=== PATIENT | female | born 1985 | race American Indian/Alaskan Native ===

== ENCOUNTER 2016-11-06 07:52 | Inpatient (IN) | payer MEDICAID, OTHER ==
[2016-11-06 07:58] VITALS: BMI 51.0
[2016-11-06] MEDS ORDERED: Sodium Chloride 0.9% 1,000 ML IV SCH (08:30)
[2016-11-06 08:57] LABS: BASO # 0.04 K/mm3 (0.0-2.0); BASO % 0.4 % (0.0-3.0); EOS % 0.4 % (1.5-5.0); GRAN # 7.73 (1.4-6.5); GRAN % 75.5 % (50.0-68.0); HEMOGLOBIN 12.3 gm/dL (12.0-16.0); LYMPH % 19.2 % (22.0-35.0); MEAN CELL VOLUME 86.6 fL (80.0-105.0); MEAN CORPUSCULAR HEMOGLOBIN 28.5 pg (25.0-35.0); MEAN CORPUSCULAR HGB CONC 32.9 g/dl (31.0-37.0); MEAN PLATELET VOLUME 10.6 fl (7.0-11.0); MONO # 0.5 (0.1-0.6); MONO % 4.5 % (1.0-6.0); PLATELET COUNT 315 10^3/uL (120.0-450.0); RBC 4.32 10^6/uL (3.5-6.1); RED CELL DISTRIBUTION WIDTH 12.2 % (11.5-14.5); WHITE BLOOD COUNT 10.2 10^3/ul (4.5-11.0)
[2016-11-06 08:58] LABS: URINE BILIRUBIN NEGATIVE (NEGATIVE); URINE BLOOD NEGATIVE (NEGATIVE); URINE GLUCOSE (UA) NEGATIVE (NEGATIVE); URINE LEUKOCYTE ESTERASE NEGATIVE Leu/uL (NEGATIVE); URINE NITRATE NEGATIVE (NEGATIVE); URINE PROTEIN 30 mg/dL (<30 mg/dL)
[2016-11-06 09:02] LABS: ALB/GLOB RATIO 1.1 (1.1-1.8); ALBUMIN 4.4 g/dL (3.0-4.8); ALT/SGPT 35 U/L (7-56); AMYLASE 91 U/L (35-125); AST/SGOT 25 U/L (15-39); BLOOD UREA NITROGEN 10 mg/dL (7-21); CALCIUM 9.3 mg/dL (8.4-10.5); GFR AFRICAN-AMERICAN > 60; GFR NON-AFRICAN AMERICAN > 60; HCG,QUALITATIVE URINE NEGATIVE (NEGATIVE); LIPASE 35 U/L (23-300); URINE APPEARANCE CLOUDY (CLEAR); URINE COLOR YELLOW (YELLOW)
[2016-11-06 09:04] LABS: URINE BACTERIA LARGE (NEG); URINE EPITHELIAL CELLS MANY /hpf (0-5); URINE RBC 0 - 2 /hpf (0-2); URINE WBC 0 - 2 /hpf (0-6)
[2016-11-06] MEDS ORDERED: Morphine 2 mg/ml ISec IVP STA ×2 (09:11→11:40)
--- NOTE | 2016-11-06 09:26 | CT ---
PROCEDURE: CT Abdomen and Pelvis without intravenous contrast HISTORY: right flank pain COMPARISON: 01/18/2015 TECHNIQUE: Without contrast.. Contrast Dose: 0 Radiation dose: Total exam DLP = 1233.31 mGy-cm. This CT exam was performed using one or more of the following dose reduction techniques: Automated exposure control, adjustment of the mA and/or kV according to patient size, and/or use of iterative reconstruction technique. FINDINGS: LOWER THORAX: Minimal left lower lobe subsegmental atelectasis. LIVER: Unremarkable. No gross lesion or ductal dilatation. GALLBLADDER AND BILE DUCTS: Unremarkable. PANCREAS: Unremarkable. No gross lesion or ductal dilatation. SPLEEN: Unremarkable. ADRENALS: Unremarkable. No mass. KIDNEYS AND URETERS: 4 mm nonobstructing mid left renal calculus. No right renal calculus. No renal mass. No hydronephrosis. No hydroureter or ureteral calculus. VASCULATURE: Unremarkable. No aortic aneurysm. BOWEL: Unremarkable. No obstruction. No gross mural thickening. APPENDIX: Unremarkable. Normal appendix. PERITONEUM: Unremarkable. No free fluid. No free air. LYMPH NODES: Unremarkable. No enlarged lymph nodes. BLADDER: Nondistended. REPRODUCTIVE: Unremarkable uterus and ovaries BONES: No acute fracture. OTHER FINDINGS: None. IMPRESSION: Nonobstructing left renal calculus. No right renal calculus. No evidence of urinary tract obstruction. No other significant abnormality.
--- NOTE | 2016-11-06 10:34 | ED PDOC ---
Arrival/HPI - General Chief Complaint: Abdominal Pain Time Seen by Provider: 11/06/16 08:10 Historian: Patient - History of Present Illness Narrative History of Present Illness (Text): 11/06/16 9:00 A 31 year old female, LMP two weeks ago, presents to the emergency department complaining of right flank pain and right upper quadrant abdominal pain. Patient describes pain as sharp and constant, which started about 7 hours ago. Notes pain started from back and radiates to the abdomen. Reports some nausea but denies any diarrhea, constipation, urinary changes or any other complaints at this time. PMD: Dr. Rice Symptom Onset: Sudden Symptom Course: Unchanged Activities at Onset: Rest Context: Home Past Medical History - Provider Review Nursing Documentation Reviewed: Yes - Tetanus Immunization Tetanus Immunization: Up to Date - Past Medical History Past Medical History: No Previous - Cardiac Hx Cardiac Disorders: No - Pulmonary Hx Respiratory Disorders: No - Neurological Hx Neurological Disorder: No - HEENT Hx HEENT Disorder: No - Renal Hx Renal Disorder: No - Endocrine/Metabolic Hx Endocrine Disorders: No - Hematological/Oncological Hx Blood Disorders: No - Integumentary Hx Dermatological Disorder: No - Musculoskeletal/Rheumatological Hx Musculoskeletal Disorders: No - Gastrointestinal Hx Gastrointestinal Disorders: Yes Hx Gall Bladder Disease: Yes - Genitourinary/Gynecological Hx Genitourinary Disorders: No - Psychiatric Hx Psychophysiologic Disorder: No Hx Substance Use: No Family/Social History - Physician Review Nursing Documentation Reviewed: Yes Family/Social History: Unknown Family HX Smoking Status: Never Smoked Hx Alcohol Use: Yes Hx Substance Use: No Allergies/Home Meds Allergies/Adverse Reactions: Allergies No Known Allergies Allergy (Verified 01/18/15 15:56) Review of Systems - Review of Systems Constitutional: absent: Fatigue, Fevers Eyes: absent: Vision Changes ENT: absent: Hearing Changes Respiratory: absent: SOB Cardiovascular: absent: Chest Pain Gastrointestinal: Abdominal Pain, Nausea. absent: Constipation, Diarrhea, Hematochezia, Hematemesis Genitourinary Female: absent: Dysuria, Frequency, Urine Output Changes Musculoskeletal: Back Pain (R flank pain) Skin: absent: Rash Neurological: absent: Headache, Dizziness Endocrine: absent: Polyuria Psychiatric: absent: Depression Physical Exam - Physical Exam Narrative Physical Exam (Text): 11/06/16 9:00 Head: Atraumatic. Normocephalic. Eyes: PERRL. EOMI. Conjunctivae are not pale. ENT: Mucous membranes are moist and intact. Oropharynx is clear and symmetric. Neck: Supple. Full ROM. No JVD. No lymphadenopathy. Cardiovascular: Regular rate. Regular rhythm. No murmurs, rubs, or gallops. Distal pulses are 2+ and symmetric. Pulmonary/Chest: No evidence of respiratory distress. Clear to auscultation bilaterally. No wheezing, rales or rhonchi. Abdominal: moderate RUQ pain on palpation. No rebound, guarding, or rigidity. No organomegaly. Good bowel sounds. Back: R sided CVA tenderness, no midline pain Extremities: No edema. No cyanosis. No clubbing. Full range of motion in all extremities. No calf tenderness. Skin: Skin is warm and dry. No petechiae. No purpura. Neurological: Alert, awake, and oriented.. Normal speech. Motor and sensory exam intact. Psychiatric: Good eye contact. Normal interaction, affect, and behavior. Vital Signs Reviewed: Yes Vital Signs Temp Pulse Resp BP Pulse Ox 11/06/16 13:53 86 16 118/64 100 11/06/16 13:41 85 18 112/68 11/06/16 11:53 85 16 112/68 100 11/06/16 10:00 84 16 120/61 100 11/06/16 08:02 97.7 F 92 H 18 119/63 100 Temperature: Afebrile Blood Pressure: Normal Pulse: Regular Respiratory Rate: Normal Appearance: Positive for: Non-Toxic, Uncomfortable Pain Distress: Moderate Mental Status: Positive for: Alert and Oriented X 3 Medical Decision Making ED Course and Treatment: 11/06/16 9:00 Impression: A 31 year old female with right upper quadrant abdominal pain and right flank pain. Differential Diagnosis included but are not limited to: nephrolithiasis vs. cholelithiasis vs. colitis Plan: -- CT abd/pelvis -- US abdomen -- labs -- Urinalysis -- Morphine, IV fluids, Pepcid, Toradol -- Reassess and disposition Prior Visits: Notes and results from previous visits were reviewed. Patient was last seen in the emergency department on 01/18/15 for evaluation of suprapubic/lower abdominal pain. Progress Notes: 11/06/16 9:30 Due to sudden onset pain from back, initially ordered cat scan of abdomen to kidney stone. Ordered US abdomen and will give patient IV fluids and toradol. 11/06/16 09:27 CT Abdomen and Pelvis without intravenous contrast Creator : Joe Enrique MD IMPRESSION: Nonobstructing left renal calculus. No right renal calculus. No evidence of urinary tract obstruction. No other significant abnormality. 11/06/16 11:27 US abdomen Creator : Joe Enrique MD IMPRESSION: Cholelithiasis without evidence of cholecystitis. Minimal dilatation of the common bile duct, nonspecific. No intrahepatic biliary dilatation. Otherwise unremarkable examination. 11/06/16 12:20 On reexamination, patient with severe pain. IV morphine ordered, with no improvement. Pain is consistent RUQ and right flank. Based on US findings, I suspect gallbladder disease. As pain is intractable, will consult surgery. Dr. Gomez at bedside. Patient will be admitted to Dr. Rice's service. - Lab Interpretations Lab Results: 11/06/16 08:30 11/06/16 08:30 Lab Results 11/06/16 08:30: Sodium 140, Potassium 4.2, Chloride 103, Carbon Dioxide 23, Anion Gap 18, BUN 10, Creatinine 0.8, Est GFR ( Amer) > 60, Est GFR (Non- Af Amer) > 60, Random Glucose 126 H, Calcium 9.3, Total Bilirubin 0.5, AST 25, ALT 35, Alkaline Phosphatase 72, Total Protein 8.6 H, Albumin 4.4, Globulin 4.1 , Albumin/Globulin Ratio 1.1, Amylase 91, Lipase 35 11/06/16 08:30: Urine Color Yellow, Urine Appearance Cloudy, Urine pH 6.0, Ur Specific [place] 1.025, Urine Protein 30 H, Urine Glucose (UA) Negative, Urine Ketones Trace H, Urine Blood Negative, Urine Nitrate Negative, Urine Bilirubin Negative, Urine Urobilinogen 1.0 H, Ur Leukocyte Esterase Negative, Urine RBC 0 - 2, Urine WBC 0 - 2, Ur Epithelial Cells Many, Urine Bacteria Large, Urine HCG , Qual Negative 11/06/16 08:30: WBC 10.2 D, RBC 4.32, Hgb 12.3, Hct 37.4, MCV 86.6, MCH 28.5, MCHC 32.9, RDW 12.2, Plt Count 315, MPV 10.6, Gran % 75.5 H, Lymph % (Auto) 19.2 L, [place] % (Auto) 4.5, Eos % (Auto) 0.4 L, Baso % (Auto) 0.4, Gran # 7.73 H , Lymph # 2.0, [place] # 0.5, Eos # 0.0, Baso # 0.04 I have reviewed the lab results: Yes - RAD Interpretation Radiology Orders: 11/06/16 08:23 ABD & PELVIS W/O PO OR IV CONT [CT] Stat 11/06/16 09:28 ABDOMEN COMPLETE [US] Stat - Medication Orders Current Medication Orders: Discontinued Medications Acetaminophen (Tylenol 325mg Tab) 650 mg PO Q6H PRN PRN Reason: Pain, Mild (1-3) Last Admin: 11/08/16 06:27 Dose: 650 mg Bupivacaine HCl (Marcaine 0.5%) Confirm Administered Dose 30 ml .ROUTE .STK-MED ONE Stop: 11/07/16 14:00 Last Admin: 11/07/16 14:42 Dose: 7 ml Cisatracurium Besylate (Nimbex) Confirm Administered Dose 20 mg IV .STK-MED ONE Stop: 11/07/16 14:01 Ephedrine (Ephedrine) Confirm Administered Dose 50 mg .ROUTE .STK-MED ONE Stop: 11/07/16 14:47 Famotidine (Pepcid) 20 mg IVP STAT STA Stop: 11/06/16 09:29 Last Admin: 11/06/16 10:15 Dose: 20 mg Fentanyl (Fentanyl) Confirm Administered Dose 100 mcg .ROUTE .STK-MED ONE Stop: 11/07/16 14:00 Fentanyl (Fentanyl) Confirm Administered Dose 100 mcg .ROUTE .STK-MED ONE Stop: 11/07/16 14:51 Fentanyl (Fentanyl) Confirm Administered Dose 100 mcg .ROUTE .STK-MED ONE Stop: 11/07/16 15:34 Glycopyrrolate (Robinul) Confirm Administered Dose 0.8 mg .ROUTE .STK-MED ONE Stop: 11/07/16 16:23 Hydromorphone HCl (Dilaudid) 0.5 mg IVP Q15M PRN PRN Reason: Pain, moderate (4-7) Stop: 11/07/16 19:01 Last Admin: 11/07/16 17:20 Dose: 0.5 mg Hydromorphone HCl (Dilaudid) Confirm Administered Dose 0.5 mg .ROUTE .STK-MED ONE Stop: 11/07/16 17:22 Sodium Chloride (Sodium Chloride 0.9%) 1,000 mls @ 100 mls/hr IV .Q10H [facility] Last Admin: 11/06/16 08:36 Dose: 100 mls/hr Sodium Chloride (Sodium Chloride 0.9%) 1,000 mls @ 150 mls/hr IV .Q6H40M [facility] Last Admin: 11/07/16 05:16 Dose: Metronidazole (Flagyl) 250 mg in 50 mls @ 100 mls/hr IVPB Q8 [facility] PRN Reason: Protocol Stop: 11/11/16 15:31 Last Admin: 11/08/16 05:50 Dose: 100 mls/hr Ceftriaxone Sodium (Rocephin 1 Gram Ivpb) 1 gm in 100 mls @ 100 mls/hr IVPB DAILY [facility] PRN Reason: Protocol Last Admin: 11/08/16 09:24 Dose: 100 mls/hr Magnesium Sulfate/Dextrose (Magnesium Sulfate 1 Gm/100 Ml D5w) 1 gm in 100 mls @ 100 mls/hr IVPB ONCE ONE Stop: 11/07/16 12:43 Last Admin: 11/07/16 12:39 Dose: 100 mls/hr Lactated Ringer's (Lactated Ringer's) 1,000 mls @ 75 mls/hr IV .[id number] [facility] Stop: 11/07/16 19:01 Last Admin: 11/07/16 20:29 Dose: Iohexol (Omnipaque 240 (50 Ml)) Confirm Administered Dose 50 ml .ROUTE .STK-MED ONE Stop: 11/07/16 14:00 Ketorolac Tromethamine (Toradol) 30 mg IVP ONCE ONE Stop: 11/06/16 08:24 Last Admin: 11/06/16 08:37 Dose: 30 mg Ketorolac Tromethamine (Toradol) Confirm Administered Dose 30 mg .ROUTE .STK- MED ONE Stop: 11/07/16 16:26 Lidocaine (Lidocaine (Bolus)) Confirm Administered Dose 100 mg .ROUTE .STK-MED ONE Stop: 11/07/16 14:00 Midazolam HCl (Versed Inj) Confirm Administered Dose 2 mg .ROUTE .STK-MED ONE Stop: 11/07/16 14:00 Morphine Sulfate (Morphine) 2 mg IVP STAT STA Stop: 11/06/16 09:12 Last Admin: 11/06/16 09:35 Dose: 2 mg Morphine Sulfate (Morphine) 2 mg IVP STAT STA Stop: 11/06/16 11:41 Last Admin: 11/06/16 11:51 Dose: 2 mg Morphine Sulfate (Morphine) 2 mg IVP Q4H PRN PRN Reason: Pain, moderate (4-7) Last Admin: 11/07/16 08:39 Dose: 2 mg Re-Assess: ALEXANDER Pain Assessment Document 11/07/16 09:39 DEL (Rec: 11/07/16 10:01 DEL [id number]) Pain Reassessment Is this a pain reassessment? Yes Sleep Is patient sleeping during reassessment? Yes Presence of Pain Presence of Pain Yes Morphine Sulfate (Morphine) 4 mg IVP Q4H PRN PRN Reason: Pain, moderate (4-7) Neostigmine Methylsulfate (Neostigmine Methylsulfate) Confirm Administered Dose 6 mg IV .STK-MED ONE Stop: 11/07/16 16:23 Ondansetron HCl (Zofran Inj) Confirm Administered Dose 4 mg .ROUTE .STK-MED ONE Stop: 11/07/16 16:26 Ondansetron HCl (Zofran Inj) 4 mg IVP Q4H PRN PRN Reason: Nausea/Vomiting Last Admin: 11/07/16 17:00 Dose: 4 mg Oxycodone/Acetaminophen (Percocet 5/325 Mg Tab) 2 tab PO Q4H PRN PRN Reason: Pain, moderate (4-7) Stop: 11/11/16 08:01 Pantoprazole Sodium (Protonix Inj) 40 mg IVP DAILY [facility] Last Admin: 11/08/16 09:24 Dose: 40 mg Phenylephrine HCl (Phenylephrine Inj) Confirm Administered Dose 10 mg .ROUTE .STK-MED ONE Stop: 11/07/16 14:09 Propofol (Diprivan) Confirm Administered Dose 400 mg .ROUTE .STK-MED ONE Stop: 11/07/16 14:00 Succinylcholine Chloride (Quelicin) Confirm Administered Dose 200 mg IV .STK- MED ONE Stop: 11/07/16 14:00 - Scribe Statement The provider has reviewed the documentation as recorded by the Candie Carranza Provider Scribe Attestation: All medical record entries made by the Candie were at my direction and personally dictated by me. I have reviewed the chart and agree that the record accurately reflects my personal performance of the history, physical exam, medical decision making, and the department course for this patient. I have also personally directed, reviewed, and agree with the discharge instructions and disposition. Disposition/Present on Arrival - Present on Arrival Any Indicators Present on Arrival: No History of DVT/PE: No History of Uncontrolled Diabetes: No Urinary Catheter: No History of Decub. Ulcer: No History Surgical Site Infection Following: None - Disposition Have Diagnosis and Disposition been Completed?: Yes Diagnosis: Cholelithiasis Disposition: HOSPITALIZED Disposition Time: 09:35 Patient Plan: Admission Condition: FAIR
--- NOTE | 2016-11-06 11:26 | US ---
HISTORY: upper abdominal pain COMPARISON: None. TECHNIQUE: Sonographic evaluation of the abdomen. FINDINGS: LIVER: Measures 15.1 cm. Diffusely increased echogenicity of the liver parenchyma. Consistent with fatty infiltration. No mass. Smooth contour. No intrahepatic biliary ductal dilatation. GALLBLADDER: Cholelithiasis. No mural thickening. No pericholecystic fluid. Negative sonographic Lawton's sign. COMMON BILE DUCT: Measures 7 Mm. No evidence of choledocholithiasis. PANCREAS: Unremarkable as visualized. No mass. No ductal dilatation. RIGHT KIDNEY: Measures 10.2cm. Normal echogenicity. No calculus, mass, or hydronephrosis. LEFT KIDNEY: Measures 10.2cm. Normal echogenicity. No calculus, mass, or hydronephrosis. SPLEEN: Normal in size and contour. No mass. AORTA: No aneurysmal dilatation. IVC: Unremarkable. OTHER FINDINGS: None. IMPRESSION: Cholelithiasis without evidence of cholecystitis. Minimal dilatation of the common bile duct, nonspecific. No intrahepatic biliary dilatation. Otherwise unremarkable examination.
--- NOTE | 2016-11-06 12:58 | CP.PCM.CON ---
History of Present Illness - History of Present Illness History of Present Illness: Consult Note General Surgery- Dr. Gomez 31F no relevant PMHx presents to the ED with sharp 10/10 RUQ pain radiated to the Right scapula and is now 7/10 after morphine was administered in the ED. Pain started at 2am this morning. 2hr prior pt ate chicken sandwich. Pt never experienced this pain before. Bilious non-bloody emesis. Denies F/C, CP/SOB, diarrhea BPR. FDLMP: 11/01 PMHx: Colitis- no meds Meds: Control PSH: none ALL: [place] Review of Systems - Review of Systems All systems: reviewed and no additional remarkable complaints except Review of Systems: + bilious vomiting Past Patient History - Tetanus Immunizations Tetanus Immunization: Up to Date - Past Social History Smoking Status: Never Smoked - CARDIAC Hx Cardiac Disorders: No - PULMONARY Hx Respiratory Disorders: No - NEUROLOGICAL Hx Neurological Disorder: No - HEENT Hx HEENT Problems: No - RENAL Hx Chronic Kidney Disease: No - ENDOCRINE/METABOLIC Hx Endocrine Disorders: No - HEMATOLOGICAL/ONCOLOGICAL Hx Blood Disorders: No - INTEGUMENTARY Hx Dermatological Problems: No - MUSCULOSKELETAL/RHEUMATOLOGICAL Hx Musculoskeletal Disorders: No - GASTROINTESTINAL Hx Gastrointestinal Disorders: Yes Hx Gall Bladder Disease: Yes - GENITOURINARY/GYNECOLOGICAL Hx Genitourinary Disorders: No - PSYCHIATRIC Hx Psychophysiologic Disorder: No Hx Substance Use: No - SURGICAL HISTORY Hx Surgeries: No Meds Allergies/Adverse Reactions: Allergies Allergy/AdvReac Type Severity Reaction Status Date / Time No Known Allergies Allergy Verified 01/18/15 15:56 - Medications Medications: Current Medications Sodium Chloride (Sodium Chloride 0.9%) 1,000 mls @ 100 mls/hr IV .Q10H [facility] Last Admin: 11/06/16 08:36 Dose: 100 mls/hr Physical Exam - Constitutional Appears: No Acute Distress, Agitated - Eye Exam Eye Exam: EOMI Pupil Exam: PERRL - ENT Exam ENT Exam: Mucous Membranes Moist - Respiratory Exam Respiratory Exam: Clear to Auscultation Bilateral, NORMAL BREATHING PATTERN. absent: Accessory Muscle Use, Rales, Rhonchi, Wheezes, Stridor - Cardiovascular Exam Cardiovascular Exam: REGULAR RHYTHM, +S1, +S2. absent: Gallop, Rubs - GI/Abdominal Exam GI & Abdominal Exam: Normal Bowel Sounds, Soft Additional comments: Tender to palpation in RUQ. +Lawton sign - Neurological Exam Neurological exam: Alert, Oriented x3 - Psychiatric Exam Psychiatric exam: Normal Affect, Normal Mood - Skin Skin Exam: Normal Color, Warm Additional comments: hyperpigmentation superior to the umbilicus Results - Vital Signs Recent Vital Signs: Last Vital Signs Temp 97.7 F 11/06/16 08:02 Pulse 85 11/06/16 11:53 Resp 16 11/06/16 11:53 BP 112/68 11/06/16 11:53 Pulse Ox 100 11/06/16 11:53 - Labs Result Diagrams: 11/06/16 08:30 11/06/16 08:30 Assessment & Plan - Assessment and Plan (Free Text) Assessment: 31F RUQ pain Plan: - US shows gallstones with current signs of acute cholecystitis - f/u HIDA scan- biliary colic vs cholecystitis - plan for possible cholecystectomy tomorrow D/w Dr. Jason Brar PGY1 - Date & Time Date: 11/06/16 Time: 12:00
[2016-11-06] MEDS: cefTRIAXone 1 gm 1 GM/100 ML BAG IVPB SCH (15:45)
[2016-11-06] MEDS: Sodium Chloride 0.9% 1,000 ML IV SCH (15:45)
[2016-11-06] MEDS: Morphine 2 mg/ml ISec IVP PRN ×2 (15:47→19:58)
--- NOTE | 2016-11-06 15:57 | CP.PCM.HP ---
Addendum entered and electronically signed by Gustabo Acuna DO 11/06/16 19:38: Patient seen and examined with Dr. Valente. Agree with his exam and plan with the following additions: 31 yo AA F with PMH of collitis, intermittent abdominal pain and hx of non-obstruction cholelithiasis presenting with acute onset nausea and bilious emesis since 2am today. Abd US notable for cholelithiasis, mild biliary duct dilation, no overt signs of cholecystitis, but given symptoms, surgery recs cholecystectomy. Patient to go to OR tomorrow , strict NPO after midnight. Found to be in afib on EKG after irregular rhythm on exam. Trops x3 q8 ordered, repeat EKG in AM, Cardio consulted; holding off on AC due to pending surgery. Original Note: <PRITI VALENTE - Last Filed: 11/06/16 15:32> History of Present Illness - History of Present Illness History of Present Illness: Priti Valente DO PGY1 - Internal Medicine H&P - Dedousis/Adaniel Service CC: Abdominal Pain HPI: Patient is a 31yo F with PMH of colitis, [place] [facility] complaining of abdominal pain. The pain started 2 AM last night and continued to get worse. Pain is diffuse, but worst in RUQ. Pain is sharp and cramping. First time she has had this pain. She also has pain in the right side of her back. Pain is constant. 10/10 in severity. Nothing makes it better or worse. She also admits to nausea/vomiting, bloating. Vomit was green/orange, multiple times since onset of pain. She denies diarrhea or constipation, recent illness, or trauma. She admits to having eaten a fried chicken sandwich and nachos prior to the onset of the pain. She denies CP, SOB, cough, wheeze, fever, chills. PMH: Colitis PSH: None Meds: OCP Soc: Tobacco 3x/wk, EtOH 2x/mo, Illicits denies ALL: Pamprin - Unspecified ocular erythema FHx: Cholecystectomy mother ROS Constitutional: pt denies fever, chills, generalized weakness ENT: pt denies dysphagia, otalgia, hearing deficit, rhinorrhea Eyes: pt denies sudden loss of vision, diplopia, blurred vision MSK: +right shoulder pain pt denies muscle stiffness, joint pain, extremity cramping Cardio: pt denies cp, sob, dvt Pulm: pt denies cough, hemoptysis, wheeze GI: +loss of appetite, abdominal pain, nausea, vomiting pt denies constipation, melena, d : pt denies burning on urination, urinary frequency, hematuria, urinary urgency Neuro: pt denies paresis, paresthesia, dizziness, velasquez, numbness, tingling Derm: pt denies skin changes, lesions, nail changes Endo: pt denies intolerance to heat/cold, diaphoresis, night sweats, polydipsia Psych: pt denies anxiety, depression, mood changes Present on Admission - Present on Admission Any Indicators Present on Admission: No Past Patient History - Tetanus Immunizations Tetanus Immunization: Up to Date - Past Social History Smoking Status: Never Smoked - CARDIAC Hx Cardiac Disorders: No - PULMONARY Hx Respiratory Disorders: No - NEUROLOGICAL Hx Neurological Disorder: No - HEENT Hx HEENT Problems: No - RENAL Hx Chronic Kidney Disease: No - ENDOCRINE/METABOLIC Hx Endocrine Disorders: No - HEMATOLOGICAL/ONCOLOGICAL Hx Blood Disorders: No - INTEGUMENTARY Hx Dermatological Problems: No - MUSCULOSKELETAL/RHEUMATOLOGICAL Hx Falls: No - GASTROINTESTINAL Hx Gastrointestinal Disorders: Yes Hx Gall Bladder Disease: Yes - GENITOURINARY/GYNECOLOGICAL Hx Genitourinary Disorders: No - PSYCHIATRIC Hx Psychophysiologic Disorder: No - SURGICAL HISTORY Hx Surgeries: No Meds Allergies/Adverse Reactions: Allergies Allergy/AdvReac Type Severity Reaction Status Date / Time No Known Allergies Allergy Verified 01/18/15 15:56 Physical Exam - Constitutional Appears: Non-toxic, In Acute Distress - Head Exam Head Exam: ATRAUMATIC, NORMOCEPHALIC - Eye Exam Eye Exam: EOMI, Normal appearance - ENT Exam ENT Exam: Mucous Membranes Moist - Neck Exam Neck exam: Negative for: Lymphadenopathy, Thyromegaly - Respiratory Exam Respiratory Exam: Clear to Auscultation Bilateral. absent: Rales, Rhonchi, Wheezes - Cardiovascular Exam Cardiovascular Exam: +S1, +S2 Additional comments: Irregular rhythm - GI/Abdominal Exam GI & Abdominal Exam: Diminished Bowel Sounds, Guarding, Tenderness Additional comments: Diffuse abdominal tenderness, but pain is felt in RUQ when palpating any part of the abdomen. Tenderness is greatest in RUQ. Unable to assess for Lawton's sign due to patient not tolerating exam. - Extremities Exam Extremities exam: Positive for: full ROM, normal inspection - Back Exam Back exam: NORMAL INSPECTION. absent: CVA tenderness (L), CVA tenderness (R) - Neurological Exam Neurological exam: Alert, Oriented x3 - Psychiatric Exam Psychiatric exam: Agitated, Anxious, Normal Affect - Skin Skin Exam: Dry, Intact Results - Vital Signs Recent Vital Signs: Last Vital Signs Temp 97.7 F 11/06/16 08:02 Pulse 86 11/06/16 13:53 Resp 16 11/06/16 13:53 BP 118/64 11/06/16 13:53 Pulse Ox 100 11/06/16 13:53 - Labs Result Diagrams: 11/06/16 08:30 11/06/16 08:30 Assessment & Plan - Assessment and Plan (Free Text) Assessment: 31 yo F with PMH of colitis [place] [facility] pain. Plan: 1. Abdominal pain - Likely 2/2 cholecystitis - Abd US in ED significant for cholelithiasis, but negative sonographic Lawton' s sign - CT Abd/Pelv in ED significant for 4mm nonobstruct mid-left renal calculus - Surgery (Jason) was already consulted, saw her in ED; planning cholecystectomy tomorrow - Currently afebrile, no leukocytosis - After discussion with surgery, agreed to start empiric Rocephin and Flagyl for coverage of intraabdominal infection - Pain control Morpine 2mg Q4h PRN - Check PT, INR, PTT today - Check CBC, CMP, Mg, Phos, Lipase sim in AM. - IVF NS @ 150ml/hr - NPO 2. IRR heart rate - On exam - Likely stress induced PVCs vs new-onset afib - Will re-check EKG, as part of pre-op clearance GI/DVT Ppx - Protonix 40mg IV QD, SCDs Patient discussed and reviewed with senior resident and attending Dr. Rice <Parker Rice - Last Filed: 11/07/16 17:25> Results - Vital Signs Recent Vital Signs: Last Vital Signs Temp 98.0 F 11/07/16 17:12 Pulse 52 L 11/07/16 17:12 Resp 12 11/07/16 17:12 BP 140/77 11/07/16 17:12 Pulse Ox 99 11/07/16 17:12 - Labs Result Diagrams: 11/07/16 07:30 11/07/16 07:30 Labs: Laboratory Results - last 24 hr 11/06/16 11/07/16 11/07/16 16:00 01:00 07:15 WBC RBC Hgb Hct MCV MCH MCHC RDW Plt Count MPV Gran % Lymph % (Auto) [place] % (Auto) Eos % (Auto) Baso % (Auto) Gran # Lymph # [place] # Eos # Baso # Sodium Potassium Chloride Carbon Dioxide Anion Gap BUN Creatinine Est GFR ( Amer) Est GFR (Non-Af Amer) POC Glucose (mg/dL) 74 Random Glucose Hemoglobin A1c Calcium Phosphorus Magnesium Total Bilirubin AST ALT Alkaline Phosphatase Troponin I < 0.01 < 0.01 Total Protein Albumin Globulin Albumin/Globulin Ratio 11/07/16 11/07/16 11/07/16 07:16 07:30 07:30 WBC 9.2 RBC 3.66 Hgb 10.2 L Hct 31.9 L MCV 87.2 MCH 27.9 MCHC 32.0 RDW 12.6 Plt Count 263 MPV 10.6 Gran % 70.1 H Lymph % (Auto) 20.5 L [place] % (Auto) 7.6 H Eos % (Auto) 1.6 Baso % (Auto) 0.2 Gran # 6.47 Lymph # 1.9 [place] # 0.7 H Eos # 0.2 Baso # 0.02 Sodium 138 Potassium 3.6 Chloride 106 Carbon Dioxide 25 Anion Gap 11 BUN 7 Creatinine 0.9 Est GFR ( Amer) > 60 Est GFR (Non-Af Amer) > 60 POC Glucose (mg/dL) Random Glucose 76 Hemoglobin A1c 5.0 Calcium 8.3 L Phosphorus 3.0 Magnesium 1.6 L Total Bilirubin 0.5 AST 29 ALT 27 Alkaline Phosphatase 53 Troponin I Total Protein 6.6 Albumin 3.3 Globulin 3.3 Albumin/Globulin Ratio 1.0 L 11/07/16 11/07/16 09:00 10:59 WBC RBC Hgb Hct MCV MCH MCHC RDW Plt Count MPV Gran % Lymph % (Auto) [place] % (Auto) Eos % (Auto) Baso % (Auto) Gran # Lymph # [place] # Eos # Baso # Sodium Potassium Chloride Carbon Dioxide Anion Gap BUN Creatinine Est GFR ( Amer) Est GFR (Non-Af Amer) POC Glucose (mg/dL) 65 Random Glucose Hemoglobin A1c Calcium Phosphorus Magnesium Total Bilirubin AST ALT Alkaline Phosphatase Troponin I < 0.01 Total Protein Albumin Globulin Albumin/Globulin Ratio Attending/Attestation - Attestation I have personally seen and examined this patient.: Yes I have fully participated in the care of the patient.: Yes I have reviewed all pertinent clinical information: Yes Notes (Text): 11/07/16 17:25 Medical record note made by the resident after discussion with my direction and input after the patient was personally seen and examined by me. I have reviewed the chart and agree that the record accurately reflects by personal performance of the history, physical exam, data review, and medical decision-making, in the course for the patient. I have also personally directed the plan of care.
[2016-11-06 16:40] LABS: INR 1.05 (0.93-1.08); PARTIAL THROMBOPLASTIN TIME 26.4 Seconds (23.7-30.8); PROTHROMBIN TIME 11.3 Seconds (9.9-11.8)
[2016-11-06] MEDS: metroNIDAZOLE IV 250mg/50 ml 250 MG/50 ML BAG IVPB SCH ×2 (17:04→21:11)
[2016-11-07] MEDS: Sodium Chloride 0.9% 1,000 ML IV SCH ×2 (00:30→05:16)
[2016-11-07] MEDS: metroNIDAZOLE IV 250mg/50 ml 250 MG/50 ML BAG IVPB SCH ×2 (06:09→21:28)
[2016-11-07 07:53] LABS: BASO # 0.02 K/mm3 (0.0-2.0); BASO % 0.2 % (0.0-3.0); EOS # 0.2 (0.0-0.7); EOS % 1.6 % (1.5-5.0); GRAN # 6.47 (1.4-6.5); GRAN % 70.1 % (50.0-68.0); HEMOGLOBIN 10.2 gm/dL (12.0-16.0); LYMPH # 1.9 (1.2-3.4); LYMPH % 20.5 % (22.0-35.0); MEAN CELL VOLUME 87.2 fL (80.0-105.0); MEAN CORPUSCULAR HEMOGLOBIN 27.9 pg (25.0-35.0); MEAN PLATELET VOLUME 10.6 fl (7.0-11.0); MONO # 0.7 (0.1-0.6); MONO % 7.6 % (1.0-6.0); PLATELET COUNT 263 10^3/uL (120.0-450.0); RBC 3.66 10^6/uL (3.5-6.1); RED CELL DISTRIBUTION WIDTH 12.6 % (11.5-14.5); WHITE BLOOD COUNT 9.2 10^3/ul (4.5-11.0)
[2016-11-07 08:13] LABS: ALBUMIN 3.3 g/dL (3.0-4.8); ALT/SGPT 27 U/L (7-56); AST/SGOT 29 U/L (15-39); BLOOD UREA NITROGEN 7 mg/dL (7-21); CALCIUM 8.3 mg/dL (8.4-10.5); GFR AFRICAN-AMERICAN > 60; GFR NON-AFRICAN AMERICAN > 60; MAGNESIUM 1.6 mg/dL (1.7-2.2)
[2016-11-07] MEDS: Morphine 2 mg/ml ISec IVP PRN (08:39)
[2016-11-07] MEDS: cefTRIAXone 1 gm 1 GM/100 ML BAG IVPB SCH (09:33)
[2016-11-07] MEDS ORDERED: Magnesium Sulfate 1 gm in D5W 1 GM/100 ML BAG IVPB ONE (11:44)
--- NOTE | 2016-11-07 13:33 | CON ---
DATE OF CONSULTATION: 11/07/2016 HISTORY OF PRESENT ILLNESS: The patient is a 31-year-old woman who presents with abdominal pain. She was found to have a gallstone. On routine EKG, the patient was noted to have a sinus arrhythmia. PAST MEDICAL HISTORY: The patient's past medical history is free of cardiac disease. MEDICATIONS: She is on no medications at home other than control pills. No history of hypertension, no diabetes mellitus. She is morbidly obese. SOCIAL HISTORY: The patient is an active smoker. REVIEW OF SYSTEMS: Fourteen-point review of systems was reviewed in detail. No cardiac symptomatology is noted. PHYSICAL EXAMINATION: VITAL SIGNS: The blood pressure is 110/71, heart rate is in the 80s which on telemetry noticed some sinus arrhythmias. NECK: Negative JVD. LUNGS: Without rales. HEART: S1 and S2. EXTREMITIES: Without edema. EKG as mentioned as above. LABORATORY DATA: Troponins are negative x2. The bilirubin is 0.5. Magnesium is 1.6 with potassium of 3.6. Hemoglobin is 10.2. IMPRESSION: 1. Gallstone. 2. Sinus arrhythmia. 3. Morbid obesity. 4. Anemia. 5. Hypomagnesemia. Given these findings, I have discussed with the patient about her need to stop smoking and the risk of thromboembolism given the combination of control pills and cigarettes. I have also discussed with the patient the need to modify her diet and to live healthier given her morbid obesity. A sinus arrhythmia without hemodynamic sequelae is not a contraindication to possible gallbladder surgery. Joe Mccormick MD
[2016-11-07] MEDS ORDERED: Midazolam 2 MG/2 ML VIAL ONE (13:59)
[2016-11-07] MEDS ORDERED: Iohexol 240 (50 ml) ONE (13:59)
[2016-11-07] MEDS ORDERED: Bupivacaine 0.5% Inj(30mL) ONE (13:59)
[2016-11-07] MEDS ORDERED: Propofol 10 mg/ml Inj (20 ML) ONE (13:59)
[2016-11-07] MEDS ORDERED: Succinylcholine 200 mg/10 ml Inj IV ONE (13:59)
[2016-11-07] MEDS ORDERED: Phenylephrine 10 mg/ml Inj ONE (14:08)
[2016-11-07] MEDS ORDERED: ePHEDrine 50 mg/ml Inj ONE (14:46)
--- NOTE | 2016-11-07 15:29 | CP.PCM.PN ---
Addendum entered and electronically signed by Jose Ramon Barrera DO 11/07/16 16:41: Patient was seen and examined and case was discussed at length with Dr. Valente. Patient for surgery today. Discussed with surgery team. Patient tobacco abuser, and on OCPs, discussed at length with patient how this puts her at increased risk of clots as well as her morbid obesity. Will see again after surgery. Jose Ramon Barrera D.O. PGY-2 Original Note: <PRITI VALENTE - Last Filed: 11/07/16 15:26> Subjective - Date & Time of Evaluation Date of Evaluation: 11/07/16 Time of Evaluation: 06:45 - Subjective Subjective: Priti Valente DO PGY1 - Internal Medicine Progress Note - Dedleah/Dwayne Service Patient seen and examined at bedside. No acute events overnight. Patient is scheduled for cholesystectomy later today. Irregular rhythm seen on EKG yesterday PM. Trops x3 negative. Patient denies CP, palpitations, SOB, WHITE, confusion, focal weakness or numbness. Patient still has some abdominal pain, but significantly improved since yesterday. Still has right sided back pain. Objective - Vital Signs/Intake and Output Vital Signs (last 24 hours): Temp Pulse Resp BP Pulse Ox 98.8 F 83 15 126/72 99 11/07/16 14:14 11/07/16 14:14 11/07/16 14:14 11/07/16 14:14 11/07/16 14:14 Intake and Output: 11/07/16 11/07/16 06:59 18:59 Intake Total 1750 0 Balance 1750 0 - Medications Medications: Current Medications Sodium Chloride (Sodium Chloride 0.9%) 1,000 mls @ 150 mls/hr IV .Q6H40M [facility] Last Admin: 11/07/16 05:16 Dose: Not Given Metronidazole (Flagyl) 250 mg in 50 mls @ 100 mls/hr IVPB Q8 [facility]ENN[facility]ER PRN Reason: Protocol Stop: 11/11/16 15:31 Last Admin: 11/07/16 06:09 Dose: 100 mls/hr Ceftriaxone Sodium (Rocephin 1 Gram Ivpb) 1 gm in 100 mls @ 100 mls/hr IVPB DAILY [facility]ENN[facility]ER PRN Reason: Protocol Last Admin: 11/07/16 09:33 Dose: 100 mls/hr Morphine Sulfate (Morphine) 2 mg IVP Q4H PRN PRN Reason: Pain, moderate (4-7) Last Admin: 11/07/16 08:39 Dose: 2 mg Pantoprazole Sodium (Protonix Inj) 40 mg IVP DAILY JENN[facility]ER Last Admin: 11/07/16 09:33 Dose: 40 mg - Labs Labs: 11/07/16 07:30 11/07/16 07:30 PT 11.3 Seconds (9.9-11.8) 11/06/16 16:00 INR 1.05 (0.93-1.08) 11/06/16 16:00 APTT 26.4 Seconds (23.7-30.8) 11/06/16 16:00 - Constitutional Appears: Non-toxic, No Acute Distress, Other (obese) - Head Exam Head Exam: ATRAUMATIC, NORMOCEPHALIC - Eye Exam Eye Exam: EOMI, Normal appearance - ENT Exam ENT Exam: Mucous Membranes Moist - Neck Exam Neck Exam: Normal Inspection. absent: Lymphadenopathy, Meningismus - Respiratory Exam Respiratory Exam: Clear to Ausculation Bilateral. absent: Rales, Rhonchi, Wheezes - Cardiovascular Exam Cardiovascular Exam: Irregular Rhythm, +S1, +S2. absent: Murmur - GI/Abdominal Exam GI & Abdominal Exam: Soft, Normal Bowel Sounds Additional comments: RUQ tenderness. +Lawton's - Extremities Exam Extremities Exam: Full ROM, Normal Inspection - Back Exam Back Exam: absent: CVA tenderness (L), CVA tenderness (R) - Neurological Exam Neurological Exam: Alert, Awake, Oriented x3 - Psychiatric Exam Psychiatric exam: Normal Affect, Normal Mood - Skin Skin Exam: Dry, Intact Assessment and Plan - Assessment and Plan (Free Text) Assessment: 31 yo F with PMH of colitis and nonobstructing cholelithiasis [place] [facility] [place]. Plan: 1. Abdominal pain - Likely 2/2 cholecystitis - Abd US in ED significant for cholelithiasis, but negative sonographic Lawton' s sign - CT Abd/Pelv in ED significant for 4mm nonobstruct mid-left renal calculus - Physical exam and history make cholelithiasis and cholecystitis most likely diagnosis - PT, INR, and PTT normal - Cholecystectomy today if cleared by cardiology (see below) - Currently afebrile, no leukocytosis - Continue rocephin and flagyl - Pain control Morpine 2mg Q4h PRN - Mg low, replete - IVF NS @ 150ml/hr - NPO 2. IRR heart rate - On exam - EKG yesterday shows irregularly irregular rhythm, repeat EKG today shows irregular rhythm, p-waves difficult to distinguish - Consult cardiology (Jace), all recs appreciated GI/DVT Ppx - Protonix 40mg IV QD, SCDs Patient discussed and reviewed with senior resident and attending Dr. Rice <Parker Rice - Last Filed: 11/07/16 17:35> Objective - Vital Signs/Intake and Output Vital Signs (last 24 hours): Temp Pulse Resp BP Pulse Ox 98.0 F 52 L 12 140/77 99 11/07/16 17:12 11/07/16 17:12 11/07/16 17:12 11/07/16 17:12 11/07/16 17:12 Intake and Output: 11/07/16 11/07/16 06:59 18:59 Intake Total 1750 0 Balance 1750 0 - Medications Medications: Current Medications Hydromorphone HCl (Dilaudid) 0.5 mg IVP Q15M PRN PRN Reason: Pain, moderate (4-7) Stop: 11/07/16 19:01 Last Admin: 11/07/16 17:20 Dose: 0.5 mg Metronidazole (Flagyl) 250 mg in 50 mls @ 100 mls/hr IVPB Q8 JENNIFER PRN Reason: Protocol Stop: 11/11/16 15:31 Last Admin: 11/07/16 06:09 Dose: 100 mls/hr Ceftriaxone Sodium (Rocephin 1 Gram Ivpb) 1 gm in 100 mls @ 100 mls/hr IVPB DAILY [facility]ENN[facility]ER PRN Reason: Protocol Last Admin: 11/07/16 09:33 Dose: 100 mls/hr Lactated Ringer's (Lactated Ringer's) 1,000 mls @ 75 mls/hr IV .[id number] [facility] Stop: 11/07/16 19:01 Morphine Sulfate (Morphine) 4 mg IVP Q4H PRN PRN Reason: Pain, moderate (4-7) Ondansetron HCl (Zofran Inj) 4 mg IVP Q4H PRN PRN Reason: Nausea/Vomiting Last Admin: 11/07/16 17:00 Dose: 4 mg Oxycodone/Acetaminophen (Percocet 5/325 Mg Tab) 2 tab PO Q4H PRN PRN Reason: Pain, moderate (4-7) Stop: 11/11/16 08:01 Pantoprazole Sodium (Protonix Inj) 40 mg IVP DAILY JENNIFER Last Admin: 11/07/16 09:33 Dose: 40 mg - Labs Labs: 11/07/16 07:30 11/07/16 07:30 PT 11.3 Seconds (9.9-11.8) 11/06/16 16:00 INR 1.05 (0.93-1.08) 11/06/16 16:00 APTT 26.4 Seconds (23.7-30.8) 11/06/16 16:00 Attending/Attestation - Attestation I have personally seen and examined this patient.: Yes I have fully participated in the care of the patient.: Yes I have reviewed all pertinent clinical information, including history, physical exam and plan: Yes Notes (Text): 11/07/16 17:35 Medical record note made by the resident after discussion with my direction and input after the patient was personally seen and examined by me. I have reviewed the chart and agree that the record accurately reflects by personal performance of the history, physical exam, data review, and medical decision-making, in the course for the patient. I have also personally directed the plan of care.
[2016-11-07] MEDS ORDERED: Neostigmine Methylsulfate 3mg/3ml Syringe IV ONE (16:22)
--- NOTE | 2016-11-07 16:55 | PCM.SURG1 ---
Surgeon's Initial Post Op Note - Surgeon's Notes Surgeon: Dr. Gomez Violin Repairer: Dr. Espinal PGY3; Dr. Fisher PGY2; Dr. Hammer PGY2 Type of Anesthesia: General Endo Anesthesia Administered By: Allen Pre-Operative Diagnosis: Acute Cholecystitis Operative Findings: see operative report Post-Operative Diagnosis: same Operation Performed: Laparoscopic Cholecystectomy Specimen/Specimens Removed: gallbladder Estimated Blood Loss: EBL {In ML}: 5 Blood Products Given: N/A Drains Used: No Drains Post-Op Condition: Good Date of Surgery/Procedure: 11/07/16 Time of Surgery/Procedure: 16:55
[2016-11-07] MEDS ORDERED: Morphine 4 mg/ml ISec IVP PRN (16:59)
[2016-11-07] MEDS ORDERED: Lactated Ringer's 1,000 ML IV SCH (17:00)
[2016-11-07] MEDS: HYDROmorphone 0.5 mg/0.5 ml ISec IVP PRN ×2 (17:00→17:20)
[2016-11-07] MEDS ORDERED: HYDROmorphone 0.5 mg/0.5 ml ISec ONE (17:21)
[2016-11-07 17:55] VITALS: O2SAT 98
[2016-11-07 19:02] VITALS: RESP 18
--- NOTE | 2016-11-07 21:10 | CARD ---
APPROVED REPORT EKG Measurement Heart [id number] SC 166P28 [id number] <Conclusion> Sinus rhythm with marked sinus arrhythmia Otherwise normal ECG
--- NOTE | 2016-11-07 21:17 | CARD ---
APPROVED REPORT EKG Measurement Heart [id number] CT 168P47 [id number] <Conclusion> Sinus rhythm with marked sinus arrhythmia Otherwise normal ECG
[2016-11-08] MEDS: metroNIDAZOLE IV 250mg/50 ml 250 MG/50 ML BAG IVPB SCH (05:50)
[2016-11-08] MEDS ORDERED: Oxycodone/Acetaminophen 5/325 mg Tab PO PRN (08:00)
--- NOTE | 2016-11-08 08:15 | CP.PCM.PN ---
Subjective - Date & Time of Evaluation Date of Evaluation: 11/08/16 Time of Evaluation: 08:14 - Subjective Subjective: General Surgery - Dr. Gomez Pt S&E. JULIANNA. PT states that she has mild abdominal pain at the incisions but otherwise denies any complaints. She tolerated regular diet last night and has been OOB and ambulating. She denies any N/V, F/C, SOB/Cp. Objective - Vital Signs/Intake and Output Vital Signs (last 24 hours): Temp Pulse Resp BP Pulse Ox 97.9 F 68 18 102/64 98 11/07/16 18:00 11/07/16 18:00 11/07/16 18:00 11/07/16 18:00 11/07/16 17:53 Intake and Output: 11/08/16 11/08/16 06:59 18:59 Intake Total 250 Balance 250 - Medications Medications: Current Medications Acetaminophen (Tylenol 325mg Tab) 650 mg PO Q6H PRN PRN Reason: Pain, Mild (1-3) Last Admin: 11/08/16 06:27 Dose: 650 mg Metronidazole (Flagyl) 250 mg in 50 mls @ 100 mls/hr IVPB Q8 JENNIFER PRN Reason: Protocol Stop: 11/11/16 15:31 Last Admin: 11/08/16 05:50 Dose: 100 mls/hr Ceftriaxone Sodium (Rocephin 1 Gram Ivpb) 1 gm in 100 mls @ 100 mls/hr IVPB DAILY [facility] PRN Reason: Protocol Last Admin: 11/07/16 09:33 Dose: 100 mls/hr Morphine Sulfate (Morphine) 4 mg IVP Q4H PRN PRN Reason: Pain, moderate (4-7) Ondansetron HCl (Zofran Inj) 4 mg IVP Q4H PRN PRN Reason: Nausea/Vomiting Last Admin: 11/07/16 17:00 Dose: 4 mg Oxycodone/Acetaminophen (Percocet 5/325 Mg Tab) 2 tab PO Q4H PRN PRN Reason: Pain, moderate (4-7) Stop: 11/11/16 08:01 Pantoprazole Sodium (Protonix Inj) 40 mg IVP DAILY [facility] Last Admin: 11/07/16 09:33 Dose: 40 mg - Labs Labs: 11/07/16 07:30 11/07/16 07:30 PT 11.3 Seconds (9.9-11.8) 11/06/16 16:00 INR 1.05 (0.93-1.08) 11/06/16 16:00 APTT 26.4 Seconds (23.7-30.8) 11/06/16 16:00 - Constitutional Appears: No Acute Distress - Head Exam Head Exam: ATRAUMATIC, NORMAL INSPECTION, NORMOCEPHALIC - Eye Exam Eye Exam: Normal appearance - ENT Exam ENT Exam: Mucous Membranes Moist - Respiratory Exam Respiratory Exam: NORMAL BREATHING PATTERN. absent: Respiratory Distress - GI/Abdominal Exam GI & Abdominal Exam: Soft. absent: Distended, Guarding, Rigid, Tenderness, Rebound Additional comments: surgical incisions C/D/I with dermabond - Neurological Exam Neurological Exam: Alert, Oriented x3 - Psychiatric Exam Psychiatric exam: Normal Affect, Normal Mood - Skin Skin Exam: Dry, Intact Assessment and Plan - Assessment and Plan (Free Text) Assessment: 31yo F w/ acute cholecystitis, POD #1 s/p Lap Cholecystectomy -Doing well Post-operatively -Tolerating Regular diet, Pain well controlled, Ambulating -Clear for D/C home from surgical standpoint -Post-op instructions explained to patient, F/U with Dr. Gomez in office in 1- [address] Jason Espinal PGY3
[2016-11-08 08:35] VITALS: BP 109/61; PULSE 81; TEMP 98.4
[2016-11-08] MEDS: cefTRIAXone 1 gm 1 GM/100 ML BAG IVPB SCH (09:24)
[2016-11-08 10:31] LABS: BASO # 0.01 K/mm3 (0.0-2.0); BASO % 0.1 % (0.0-3.0); GRAN % 84.4 % (50.0-68.0); HEMOGLOBIN 10.6 gm/dL (12.0-16.0); LYMPH # 1.6 (1.2-3.4); LYMPH % 10.6 % (22.0-35.0); MEAN CELL VOLUME 86.7 fL (80.0-105.0); MEAN CORPUSCULAR HEMOGLOBIN 28.2 pg (25.0-35.0); MEAN CORPUSCULAR HGB CONC 32.5 g/dl (31.0-37.0); MEAN PLATELET VOLUME 10.9 fl (7.0-11.0); MONO # 0.8 (0.1-0.6); MONO % 4.9 % (1.0-6.0); PLATELET COUNT 271 10^3/uL (120.0-450.0); RBC 3.76 10^6/uL (3.5-6.1); RED CELL DISTRIBUTION WIDTH 12.1 % (11.5-14.5); WHITE BLOOD COUNT 15.4 10^3/ul (4.5-11.0)
--- NOTE | 2016-11-08 12:31 | CP.PCM.DIS ---
Provider - Provider Date of Admission: 11/06/16 12:35 Attending physician: Virgilio Farris MD Consults: Surg: Jason Cardio: Mccormick Time Spent in preparation of Discharge (in minutes): 45 Diagnosis - Discharge Diagnosis (1) Cholecystitis Status: Acute Priority: High (2) Cholelithiasis Status: Chronic Priority: High Hospital Course - Lab Results Lab Results: Micro Results 11/07/16 18:20 Bile Gram Stain - Final 11/07/16 18:20 Bile Body Fluid Culture - Preliminary NO GROWTH AFTER 24 HOURS Most Recent Lab Values WBC 15.4 10^3/ul (4.5-11.0) H D 11/08/16 10:00 RBC 3.76 10^6/uL (3.5-6.1) 11/08/16 10:00 Hgb 10.6 gm/dL (12.0-16.0) L 11/08/16 10:00 Hct 32.6 % (36.0-48.0) L 11/08/16 10:00 MCV 86.7 fL (80.0-105.0) 11/08/16 10:00 MCH 28.2 pg (25.0-35.0) 11/08/16 10:00 MCHC 32.5 g/dl (31.0-37.0) 11/08/16 10:00 RDW 12.1 % (11.5-14.5) 11/08/16 10:00 Plt Count 271 10^3/uL (120.0-450.0) 11/08/16 10:00 MPV 10.9 fl (7.0-11.0) 11/08/16 10:00 Gran % 84.4 % (50.0-68.0) H 11/08/16 10:00 Lymph % (Auto) 10.6 % (22.0-35.0) L 11/08/16 10:00 Owen % (Auto) 4.9 % (1.0-6.0) 11/08/16 10:00 Eos % (Auto) 0.0 % (1.5-5.0) L 11/08/16 10:00 Baso % (Auto) 0.1 % (0.0-3.0) 11/08/16 10:00 Gran # 13.00 (1.4-6.5) H 11/08/16 10:00 Lymph # 1.6 (1.2-3.4) 11/08/16 10:00 Owen # 0.8 (0.1-0.6) H 11/08/16 10:00 Eos # 0.0 (0.0-0.7) 11/08/16 10:00 Baso # 0.01 K/mm3 (0.0-2.0) 11/08/16 10:00 PT 11.3 Seconds (9.9-11.8) 11/06/16 16:00 INR 1.05 (0.93-1.08) 11/06/16 16:00 APTT 26.4 Seconds (23.7-30.8) 11/06/16 16:00 Sodium 138 mmol/L (132-148) 11/07/16 07:30 Potassium 3.6 mmol/L (3.6-5.0) 11/07/16 07:30 Chloride 106 mmol/L (98-107) 11/07/16 07:30 Carbon Dioxide 25 mmol/L (21-33) 11/07/16 07:30 Anion Gap 11 (10-20) 11/07/16 07:30 BUN 7 mg/dL (7-21) 11/07/16 07:30 Creatinine 0.9 mg/dL (0.5-1.4) 11/07/16 07:30 Est GFR ( Amer) > 60 11/07/16 07:30 Est GFR (Non-Af Amer) > 60 11/07/16 07:30 POC Glucose (mg/dL) 65 mg/dL (65-110) 11/07/16 10:59 Random Glucose 76 mg/dL (70-110) 11/07/16 07:30 Hemoglobin A1c 5.0 % (4.2-6.5) 11/07/16 07:16 Calcium 8.3 mg/dL (8.4-10.5) L 11/07/16 07:30 Phosphorus 3.0 mg/dL (2.5-4.5) 11/07/16 07:30 Magnesium 1.6 mg/dL (1.7-2.2) L 11/07/16 07:30 Total Bilirubin 0.5 mg/dL (0.2-1.3) 11/07/16 07:30 AST 29 U/L (15-39) 11/07/16 07:30 ALT 27 U/L (7-56) 11/07/16 07:30 Alkaline Phosphatase 53 U/L (38-133) 11/07/16 07:30 Troponin I < 0.01 ng/mL 11/07/16 09:00 Total Protein 6.6 g/dL (5.8-8.3) 11/07/16 07:30 Albumin 3.3 g/dL (3.0-4.8) 11/07/16 07:30 Globulin 3.3 gm/dL 11/07/16 07:30 Albumin/Globulin Ratio 1.0 (1.1-1.8) L 11/07/16 07:30 Amylase 91 U/L (35-125) 11/06/16 08:30 Lipase 21 U/L (23-300) L 11/06/16 16:00 Urine Color Yellow (YELLOW) 11/06/16 08:30 Urine Appearance Cloudy (CLEAR) 11/06/16 08:30 Urine pH 6.0 (4.7-8.0) 11/06/16 08:30 Ur Specific [place] 1.025 (1.005-1.035) 11/06/16 08:30 Urine Protein 30 mg/dL (<30 mg/dL) H 11/06/16 08:30 Urine Glucose (UA) Negative mg/dL (NEGATIVE) 11/06/16 08:30 Urine Ketones Trace mg/dL (NEGATIVE) H 11/06/16 08:30 Urine Blood Negative (NEGATIVE) 11/06/16 08:30 Urine Nitrate Negative (NEGATIVE) 11/06/16 08:30 Urine Bilirubin Negative (NEGATIVE) 11/06/16 08:30 Urine Urobilinogen 1.0 E.U./dL (<1 E.U./dL) H 11/06/16 08:30 Ur Leukocyte Esterase Negative [place]/uL (NEGATIVE) 11/06/16 08:30 Urine RBC 0 - 2 /hpf (0-2) 11/06/16 08:30 Urine WBC 0 - 2 /hpf (0-6) 11/06/16 08:30 Ur Epithelial Cells Many /hpf (0-5) 11/06/16 08:30 Urine Bacteria Large (NEG) 11/06/16 08:30 Urine HCG, Qual Negative (NEGATIVE) 11/06/16 08:30 - Hospital Course Hospital Course: 31yo F with PMH of colitis and nonobstructing cholelithiasis [place] [facility] [place] abdominal pain and back pain. Abdominal US in ER significant for cholelithiasis, and physical exam significant for positive Lawton's sign. Her history, in addition to the objective findings implied and diagnosis of acute cholecystitis. The first night of her admission, she also had an irregular heart rate on exam, and EKG showed an irregular rhythm with questionable P- waves. Cardio was consulted, who later cleared her for surgery and diagnosed her with sinus arrhythmia. Yesterday, she had successful laparoscopic cholecystectomy without any complications. Today, she is tolerating PO with a normal appetite, is passing flatus, and is ambulating normally. She denies any abdominal pain, n/v/d/c, f/c, CP, SOB. Her wounds are CDI. Her medications and medical conditions were discussed, and all her questions were answered to her satisfaction, and she was discharged to home. Discharge Exam - Head Exam Head Exam: ATRAUMATIC, NORMAL INSPECTION, NORMOCEPHALIC - Eye Exam Eye Exam: EOMI, Normal appearance - ENT Exam ENT Exam: Mucous Membranes Moist - Neck Exam Neck exam: Full Rom, Normal Inspection - Respiratory Exam Respiratory Exam: Clear to PA & Lateral. absent: Rales, Rhonchi, Wheezes - Cardiovascular Exam Cardiovascular Exam: RRR, +S1, +S2 - GI/Abdominal Exam GI & Abdominal Exam: Normal Bowel Sounds, Soft, Tenderness (superficial tenderness, only over incisions, which are CDI with no surrounding erythema, induration, bleeding, or drainage.). absent: Distended, Firm, Guarding, Rigid - Extremities Exam Extremities exam: normal inspection - Back Exam Back exam: NORMAL INSPECTION. absent: CVA tenderness (L), CVA tenderness (R) - Neurological Exam Neurological exam: Alert, Oriented x3 - Psychiatric Exam Psychiatric exam: Normal Affect, Normal Mood - Skin Skin Exam: Dry, Intact, Normal Color Discharge Plan - Follow Up Plan Condition: GOOD Disposition: HOME/ ROUTINE Instructions: Atrial Fibrillation (DC), Low Fat Diet (DC), Laparoscopic Cholecystectomy (DC) Additional Instructions: 1. You may shower and wash with soap and water, no soaking in bathtub or swimming in ocean/pool. Skin glue will fall off slowly in about 2 weeks. 2. You may resume Regular diet and light activities. Avoid any heavy lifting > 10lbs, or abdominal exercise for 4weeks. 3. Make an appt to see Dr. Gomez in office in 1-2 weeks. 4. Follow up with PCP within 1-2 weeks 5. For any new or worsening symptoms or concerns, contact PCP immediately or return to ER Referrals: Ivan Gomez MD [Staff Provider] -
--- NOTE | 2016-11-08 13:37 | PN ---
CARDIOLOGY FOLLOWUP NOTE DATE OF FOLLOWUP: 11/08/2016 SUBJECTIVE: The patient is taking p.o. liquids and is ambulating in the room. PHYSICAL EXAMINATION: VITAL SIGNS: Blood pressure is 109/61 and heart rate is in the 80s. NECK: Negative JVD. LUNGS: Without rales. HEART: Reveals S1 and S2. EXTREMITIES: Without edema. LABORATORY DATA: The hemoglobin is 10.6 and white count is 15.4. IMPRESSION: 1. Status post cholecystectomy. 2. Morbid obesity. 3. Anemia. 4. Sinus arrhythmia. 5. Hypomagnesemia. PLAN: Given these findings, the patient is doing well postop. I have encouraged her to begin ambulation around the room as well as have discussed her living a healthier lifestyle when she leaves the hospital. Joe Mccormick MD
--- NOTE | 2016-11-09 00:02 | OP ---
INDICATION: The patient is a 31-year-old with abdominal pain and ultrasound showing a clear stone without inflammation, normal liver function. Patient is about 350 pounds and about 5 feet tall. In the operating room, patient was identified by name, name of procedure, laterality, my coleman, consent. Patient was placed supine and after endotracheal anesthesia and a successful timeout, the abdomen was exposed. A infraumbilical incision was made through the skin and subcutaneous tissues. Varus needle was inserted to about 2 liters and then the Visi-Port was placed. It was a long abdomen. A was placed and two lateral 5s, the 4th port being less than optimal, but it did allow completion of the case. SURGEON: Dr. Gomez. RELEASE OF INFORMATION SPECIALIST: Dr. Espinal. DESCRIPTION OF THE PROCEDURE: The fundus of the gallbladder was pulled up with prestige. After it was decompressed to about 50 mL of dark bile. The omentum was pulled down and the end of the gallbladder was seen laterally, medially, the perineum was pulled down to expose the plate of the liver very nicely. The artery was seen very close to the duct, but very small. The cystic duct was eventually cleaned very nicely, seemed to be going clearly into the gallbladder as was the artery. After the was achieved, both structures were reexamined, ascertained and doubly clipped and divided without issue. The gallbladder was then taken off the liver bed, about the 1[address], a structure was seen entering the liver, this was doubly clipped and divided as the posterior branch of the artery seemed to be posing very nicely. The gallbladder then taken off the liver bed with Harmonic, placed in the bag, the bag broke during the dissection but it was retrieved very nicely. This required bilateral clips on the fascia. The gallbladder was then removed without issue. Abdomen was copiously irrigated and dried. There was nothing untoward, no bleeding, no bile, no injury that we could see. The CO2 was removed after the completion of the observation and the incisions were closed with a interrupted Vicryl on a needle in a mattress type stitch. The incisions were closed with subcutaneous Vicryl, Dermabond. The patient was taken to recovery room in good condition. Sponge and needle count was quite correct. Ivan Gomez MD [facility] # [id number]
== END 2016-11-08 14:57 | disposition home or self-care (01) | DRG 418 ==
LOC: ED 07:52 → ERH 12:35 → 5RNO 14:01 → 2RSO 18:12 → 5RNO 11-07 18:06
PROVIDERS: ADMIT Internal Medicine; ATTEND Internal Medicine
PROC: 0FT44ZZ Resection of Gallbladder, Percutaneous Endoscopic Approach (ICD-10-PCS; principal; 2016-11-07 13:30)
DX: K80.00 Calculus of gallbladder with acute cholecystitis without obstruction (principal); Z68.43 Body mass index [BMI] 50.0-59.9, adult; E83.42 Hypomagnesemia; E66.01 Morbid (severe) obesity due to excess calories; N20.0 Calculus of kidney; D64.9 Anemia, unspecified; F17.200 Nicotine dependence, unspecified, uncomplicated; I49.9 Cardiac arrhythmia, unspecified; I49.8 Other specified cardiac arrhythmias